=== PATIENT | male | born 2000 | race Caucasian/White ===

== ENCOUNTER 2022-09-29 12:27 | Emergency (ER) | payer OTHER ==
[~2022-09-29] VITALS: Ht 172.7 cm; Wt 88.3 kg
[2022-09-29] MEDS ORDERED: ERYT5OIN25 OU (13:25)
[2022-09-29 13:31] VITALS: BP 130/78
== END 2022-09-29 13:39 | disposition home or self-care (01) ==
LOC: M ED 12:27
DX: H00.011 Hordeolum externum right upper eyelid (principal); H00.015 Hordeolum externum left lower eyelid